=== PATIENT | female | born 1955 | race Two or more races ===

== ENCOUNTER 2024-12-01 20:41 | Inpatient (IN) | payer OTHER, MEDICAID ==
[~2024-12-01] VITALS: Ht 152.4 cm; Wt 56.8 kg
--- NOTE | 2024-12-01 21:08 | ED.PDOC ---
History of Present Illness HPI Comments 69-year-old female came to ER for high blood pressure. 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 States she takes her losartan regularly. Patient has been experiencing elevated blood pressure at least 2-3 times weekly, however for the past 5 days her blood pressure has been constantly elevated. Noted to have headaches and nape pain. 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 Family History Family History: Reviewed,noncontributory to illness Social History Smoker: Non-Smoker Alcohol: Denies ETOH Use Drugs: Denies Drug Use Lives In: Home Constitutional: denies: chills, diaphoresis, fatigue, fever, malaise, sweats, weakness, others EENTM: denies: blurred vision, double vision, ear bleeding, ear discharge, ear drainage, ear pain, ear ringing, eye pain, eye redness, hearing loss, mouth pain, mouth swelling, nasal discharge, nose bleeding, nose congestion, nose pain, photophobia, tearing, throat pain, throat swelling, voice changes, others Respiratory: denies: cough, hemoptysis, orthopnea, SOB at rest, shortness of breath, SOB with excertion, stridor, wheezing, others Cardiovascular: denies: chest pain, dizzy spells, diaphoresis, Dyspnea on exertion, edema, irregular heart beat, left arm pain, lightheadedness, palpitations, PND, syncope, others Gastrointestinal: denies: abdomen distended, abdominal pain, blood streaked bowels, constipated, diarrhea, dysphagia, difficulty swallowing, hematemesis, melena, nausea, poor appetite, poor fluid intake, rectal bleeding, rectal pain, vomiting, others Genitourinary: denies: abnormal vagina bleeding, burning, dyspareunia, dysuria, flank pain, frequency, hematuria, incontinence, pain, , vagina discharge, urgency, others Neurological: reports: headache; denies: dizziness, fainting, left sided numbness, left sided weakness, numbness, paresthesia, pre-existing deficit, rig ht sided numbness, right sided weakness, seizure, speech problems, tingling, tremors, weakness, others Musculoskeletal: denies: back pain, gout, joint pain, joint swelling, muscle pain, muscle stiffness, neck pain, others Integumetry: denies: bruises, change in color, change in hair/nails, dryness, laceration, lesions, lumps, rash, wounds, others Allergic/Immunocompromised: denies: Difficulty Healing, Frequent Infections, Hives, Itching, others Hematologic/Lymphatic: denies: anemia, blood clots, easy bleeding, easy bruising, swollen glands, others Endocrine: denies: excessive hunger, excessive sweating, excessive thirst, excessive urination, flushing, intolerance to cold, intolerance to heat, unexplained weight gain, unexplained weight loss, others Psychiatric: denies: anxiety, bipolar disorder, depression, hopeless, panic disorder, schizophrenia, sleepless, suicidal, others Physical Exam General Appearance: No Apparent Distress, Normal HEENT: Normal ENT Inspection, Pharynx Normal, TMs Normal Neck: Full Range of Motion, Non-Tender, Normal, Normal Inspection Respiratory: Chest Non-Tender, Lungs Clear, No Accessory Muscle Use, No Respiratory Distress, Normal Breath Sounds Cardiovascular: No Edema, No JVD, No Murmur, No Gallop, Normal Peripheral Pulses, Regular Rate/Rhythm, Other (Dextrocardia) Breast Exam: Deferred Gastrointestinal: No Organomegaly, Non Tender, No Pulsatile Mass, Normal Bowel Sounds, Soft Genitalia: Deferred Pelvic: Deferred Rectal: Deferred Extremities: No calf tenderness, Normal capillary refill, Normal inspection, Normal range of motion, Non-tender, No pedal edema Musculoskeletal : Apperance: Normal Neurologic: Alert, laboratory worker II-XII nml as Tested, No Motor Deficits, Normal Affect, Normal Mood, No Sensory Deficits Cerebellar Function: Normal Reflexes: Normal Skin: Dry, Normal Color, Warm Lymphatic: No Adenopathy Was a procedure done? Was a procedure done?: No Differential Dx Considerations may include: Hypertensive urgency, anemia, electrolyte imbalance, anxiety intracranial bleed, CVA, acute renal failure, congestive heart failure, medication noncompliance, X-Ray, Labs, Meds, VS Vital Signs Date Time Temp Pulse Resp B/P (MAP) Pulse Ox O2 Delivery O2 Flow Rate FiO2 8/24/25 00:00 97.8 69 19 161/61 (94) 97 97.8 12/01/24 23:29 64 157/61 12/01/24 23:00 97.8 78 19 157/73 (101) 97 97.8 12/01/24 22:29 72 190/83 12/01/24 22:28 223/99 12/01/24 22:15 78 12/01/24 22:07 81 19 97 Room Air* 0 21 12/01/24 22:07 97.8 81 19 223/99 (140) 97 97.8 12/01/24 21:12 77 12/01/24 20:43 98.1 80 16 239/102 98 98.1 Lab Test 12/01/24 21:11 Range/Units White Blood Count 9.4 4.4-10.8 10^3/uL Red Blood Count 4.99 4.0-5.20 10^6/uL Hemoglobin 16.1 12.2-16.2 g/dL Hematocrit 45.9 36.0-46.0 % Mean Corpuscular Volume 91.9 80.0-100.0 fL Mean Corpuscular Hemoglobin 32.2 H 28.0-32.0 pg Mean Corpuscular Hemoglobin Concent 35.0 32.0-36.0 g/dL Red Cell Distribution Width 13.7 11.8-14.3 % Platelet Count 326 140-450 10^3/uL Mean Platelet Volume 7.0 6.9-10.8 fL Neutrophils (%) (Auto) 43.2 37.0-80.0 % Lymphocytes (%) (Auto) 48.0 10.0-50.0 % Monocytes (%) (Auto) 5.8 0.0-12.0 % Eosinophils (%) (Auto) 2.2 0.0-7.0 % Basophils (%) (Auto) 0.8 0.0-2.0 % Neutrophils # (Auto) 4.0 1.6-8.6 10 ^3/uL Lymphocytes # (Auto) 4.5 0.4-5.4 10 ^3/uL Monocytes # (Auto) 0.5 0-1.3 10 ^3/uL Eosinophils # (Auto) 0.2 0-0.8 10 ^3/uL Basophils # (Auto) 0.1 0-0.2 10 ^3/uL Nucleated Red Blood Cells 0.1 % Sodium Level 137 136-145 mmol/L Potassium Level 4.0 3.5-5.1 mmol/L Chloride Level 100 98-107 mmol/L Carbon Dioxide Level 26 20-31 mmol/L Anion Gap 11 5-15 Blood Urea Nitrogen 7 L 9-23 mg/dL Creatinine 0.88 0.550-1.02 mg/dL Glomerular Filtration Rate Calc 72 >90 mL/min BUN/Creatinine Ratio 8.0 L 10.0-20.0 Serum Glucose 154 H 74-106 mg/dL Calcium Level 10.8 H 8.7-10.4 mg/dL Troponin I High Sensitivity 8 </=34 ng/L Current Medications Medications (Trade) Dose Ordered Sig/Ramón Route Start Time Stop Time Status Last Admin Fentanyl Citrate 12.5 mcg ONCE ONCE IV 12/01/24 21:00 12/01/24 21:01 DC 12/01/24 22:28 Labetalol HCl 250 mg/Sodium Chloride 250 ml @ 60 mls/hr Q4H10M ONCE IV 12/01/24 21:30 12/02/24 01:39 12/01/24 22:29 Time of 1ST Reevaluation: 21:03 Reevaluation 1ST: Unchanged Time of 2ND Reevaluation: 00:52 Reevaluation 2ND: Improved Patient Education/Counseling: Diagnosis, Treatment, Prognosis, Need For Follow Up Family Education/Counseling: Diagnosis, Treatment, Prognosis, Need For Follow Up Comments Patient has a history of hypertension. Her blood pressure recently has been out of control frequently and running into the high 200s. Patient is also having symptoms of headaches. Her blood pressure was controlled with labetalol drip. Her headache has improved. She has no evidence of any kind of intracranial bleed from the hypertension. The CAT scans unremarkable. However she will be admitted for further workup and evaluation and treatment of the uncontrolled hypertension with hypertensive urgency. SEPSIS Sepsis Screen Date sepsis recognized/suspect: Dec 01, 2024 Time Sepsis recognized/suspect: 2042 Recent Procedure: No On Antibiotic Therapy: No Respiratory Rate >20: No Heart Rate >90: No Temp<36 C (96.8 F) or >38.3 C: No SBP <90 or MAP <65 mmHG: No New Acute Mental Status Change: No Is the patient on CPAP, BIPAP,: No Physician Orders Chest Portable (12/01/24 20:55) Electrocardigram (12/01/24 20:55) Head Without Contrast (12/01/24 20:55) Electrocardigram (12/01/24 21:55) Sodium Chl 0.9% (Ns... W/Labetalol Injec (12/01/24 21:30) Vital Signs Date Time Temp Pulse Resp B/P (MAP) Pulse Ox O2 Delivery O2 Flow Rate FiO2 12/02/24 00:00 97.8 69 19 161/61 (94) 97 97.8 12/01/24 23:29 64 157/61 12/01/24 23:00 97.8 78 19 157/73 (101) 97 97.8 12/01/24 22:29 72 190/83 12/01/24 22:28 223/99 12/01/24 22:15 78 12/01/24 22:07 81 19 97 Room Air* 0 21 12/01/24 22:07 97.8 81 19 223/99 (140) 97 97.8 12/01/24 21:12 77 12/01/24 20:43 98.1 80 16 239/102 98 98.1 Laboratory Tests Test 12/01/24 21:11 White Blood Count 9.4 10^3/uL (4.4-10.8) Medications Medications Dose Ordered Sig/Ramón Route Start Time Stop Time Status Last Admin Dose Admin Fentanyl Citrate 12.5 mcg ONCE ONCE IV 12/01/24 21:00 12/01/24 21:01 DC 12/01/24 22:28 Labetalol HCl 250 mg/Sodium Chloride 250 ml @ 60 mls/hr Q4H10M ONCE IV 12/01/24 21:30 12/02/24 01:39 12/01/24 22:29 Departure 1 Departure Time of Disposition: 00:55 Impression: Primary Impression: Hypertensive crisis Disposition: 09 ADMITTED INPATIENT Admit to: ICU Condition: Serious Discharged With: Self, Relative Critical Care Note Critical Care Time?: Yes (35 min-critical care time only) Critical care comment: Hypertensive urgency Due to concerns for patients condition deteriorating, the care required my highest level of attention and readiness to intervene. I assessed the patient, reviewed the medical records, ordered the appropriate tests and treatments, then reassessed for results and responsiveness. I communicated with medical personnel and consultants and formulated a plan of care. Total critical care time excludes any procedures Stability Stability form required: No Heart Score Heart Score: Heart Score Response (Comments) Value History Slightly Suspicious 0 EKG Repolarization Disturb 1 Age >65 2 Risk Factors >3 or Hx ASHD 2 Troponin Normal limit 0 Total 5 I personally scribed for GROVER SUGGS MD ([email or web address]) on 12/01/24 at 21:08. Electronically submitted by Edison Wood ([facility]). GROVER SUGGS MD Dec 01, 2024 21:08
[2024-12-01 21:19] LABS: Hematocrit 45.9 % (36.0-46.0); Hemoglobin 16.1 g/dL (12.2-16.2); Mean Corpuscular Hemoglobin 32.2 pg (28.0-32.0); Mean Corpuscular Volume 91.9 fL (80.0-100.0); Nucleated Red Blood Cells % 0.1 %
[2024-12-01 21:26] LABS: Chloride 100 mmol/L (98-107); Potassium 4.0 mmol/L (3.5-5.1); Sodium 137 mmol/L (136-145)
[2024-12-01 21:27] LABS: Anion Gap 11 (5-15); Carbon Dioxide 26 mmol/L (20-31)
[2024-12-01 21:32] LABS: BUN/Creatinine Ratio 8.0 (10.0-20.0)
[2024-12-01 21:36] LABS: Blood Urea Nitrogen 7 mg/dL (9-23); Calcium 10.8 mg/dL (8.7-10.4); Glucose 154 mg/dL (74-106)
[2024-12-01 22:07] VITALS: PULSE 81; RESP 19; O2SAT 97
[2024-12-01] MEDS: fentaNYL CITRATE 100 MCG/2 ML VL IV ONE (22:28)
[2024-12-01] MEDS: LABETALOL INJECTION 250 MG in SODIUM CHL 0.9% 200 ML IV ONE (22:29)
[2024-12-01] MEDS: LABETALOL HCL 5 MG/ML ML 20ML VIAL IV ONE (22:29)
--- NOTE | 2024-12-02 00:20 | DVH ---
CHEST RADIOGRAPH Indication: htn Technique: 1 view Comparison: None FINDINGS: Patient is rotated. Lines and Tubes: External leads. Lungs: No focal consolidation. Pleura: No effusion or pneumothorax. Cardiomediastinal contours: Size and position appear altered by patient rotation, without obvious abn ormality. Other: No acute osseous abnormality. IMPRESSION: 1. No acute cardiopulmonary abnormality within the exam limitation.
--- NOTE | 2024-12-02 00:26 | DVH ---
EXAM: CT HEAD WITHOUT CONTRAST INDICATION: headache TECHNIQUE: CT of the head without intravenous contrast. Radiation Dose : 1. Head: CT Dose: CTDI volume is 54 mGy. Dose-length product is 950 mGy*cm The dose indicators for CT are the volume Computed Tomography (CT) Dose Index (CTDIvol) and the Dose Length Product (DLP), and are measured in units of mGy and mGy-cm, respectively. These indicators are not patient dose, but values generated from the CT scanner acquisition factors. The report includes radiation exposure data for exposures received during this examination. COMPARISON: None FINDINGS: Brain: No acute hemorrhage, mass effect, or cerebral edema. CSF Spaces: Size and morphology within normal limits. Bones/Soft Tissues: No acute findings. Orbits/Sinuses/Mastoids: Mild paranasal sinus disease. Otherwise unremarkable as visualized. IMPRESSION: 1. No acute intracranial abnormality. Radiation optimization: All CT scans at this facility use at least one of these dose optimization lashell hniques: automated exposure control mA and/or kV adjustment per patient size (includes targeted exam s where dose is matched to clinical indication) or iterative reconstruction.
--- NOTE | 2024-12-02 01:24 | DVHHP2 ---
History of Present Illness Reason for Visit: Hypertensive urgency History of Present Illness The patient is a 69-year-old female past medical history of CVA x3 with no residuals and hypertension who presented to [facility] ED with complaint of high blood pressure associated with headache. Patient has been experiencing elevated blood pressure at least 2-3 times weekly, however for the past 5 days her blood pressure has been constantly elevated, complaining of headaches and nape pain. Patient was seen and evaluated in the ED with elevated blood pressure at 239/109 mm Hg, heart rate 68, temperature 97.8 F, O2 saturation 97% on room air. Laboratory data shows WBC 9.4, platelets 326, sodium 137, potassium 4.0, BUN 7, creatinine 0.88, glucose 154, calcium 10.8, troponin 8. Chest x-ray show no acute cardiopulmonary abnormality. Patient was given labetalol 300 mg IV x 1, please see medication orders section in the computer. On my assessment, son at bedside, patient denies chest pain, no headache at this moment, no dizziness, no diaphoresis, no shortness of breaths, no nausea, no vomiting, no fever, no chills. Patient was admitted for further evaluation and medical management. Past Medical History CVA x3 with no residuals, HTN Past Surgical History Denies all surgeries Family History Reviewed, noncontributory to the management of this case. Past Social History The patient lives at home, denies smoking, alcohol or illicit drugs abuse. Review of Systems Constitutional: Yes: Weakness; No: Fever, Chills, Sweats, Malaise, Other Eyes: No: Pain, Vision change, Conjunctivae inflammation, Eyelid inflammation, Other, Redness ENT: No: Ear pain, Ear discharge, Nose pain, Nose discharge, Nose congestion, Mouth pain, Mouth swelling, Throat pain, Throat swelling, Other Respiratory: No: Cough, Dry, Shortness of breath, SOB with excertion, Wheezing, Hemoptysis, Pleuritic Pain, Sputum, Wheezing, Other Cardiovascular: Other (Hypertension); No: Chest Pain, Palpitations, Orthopnea, Paroxysmal Noc. Dyspnea, Edema, Lt Headedness Gastrointestinal: No: Nausea, Vomiting, Abdominal Pain, Diarrhea, Constipation, Melena, Hematochezia, Other Genitourinary: No Dysuria, No Frequency, No Incontinence, No Hematuria, No Retention, No Other Musculoskeletal: No: other, neck pain, shoulder pain, arm pain, back pain, hand pain, leg pain, foot pain Skin: No: Rash, Lesions, Jaundice, Bruising, Other Neurological: Other (Headache); No: Weakness, Numbness, Incoordination, Change in speech, Confusion, Seizures Allergies: Coded Allergies: NO KNOWN ALLERGIES (Unverified , 12/01/24) Exam Vital Signs Vital Signs Date Time Temp Pulse Resp B/P (MAP) Pulse Ox O2 Delivery O2 Flow Rate FiO2 12/02/24 00:00 97.8 69 19 161/61 (94) 97 97.8 12/01/24 22:07 Room Air* 0 21 General Appearance: Alert, Oriented X3, Cooperative, No acute distress HEENT: Atraumatic, PERRLA, EOMI, Mucous membr. moist/pink Respiratory: Clear to auscultation, Normal air movement Cardiovascular: Regular rate, Normal S1, Normal S2, No murmurs Abdominal: Normal bowel sounds, Soft, No tenderness, No hepatospenomegaly, No masses Extremities: No clubbing, No cyanosis, No edema, Normal pulses, No tenderness/swelling Skin: No rashes, No breakdown, No significant lesion Neuro: Normal speech, Normal tone, Sensation intact, Cranial nerves 3-12 NL, Reflexes 2+, Other (Generalized weakness) Psych/Mental Status: Mental status NL, Mood NL Labs/Xrays Labs Test 12/01/24 21:11 Range/Units White Blood Count 9.4 4.4-10.8 10^3/uL Red Blood Count 4.99 4.0-5.20 10^6/uL Hemoglobin 16.1 12.2-16.2 g/dL Hematocrit 45.9 36.0-46.0 % Mean Corpuscular Volume 91.9 80.0-100.0 fL Mean Corpuscular Hemoglobin 32.2 H 28.0-32.0 pg Mean Corpuscular Hemoglobin Concent 35.0 32.0-36.0 g/dL Red Cell Distribution Width 13.7 11.8-14.3 % Platelet Count 326 140-450 10^3/uL Mean Platelet Volume 7.0 6.9-10.8 fL Neutrophils (%) (Auto) 43.2 37.0-80.0 % Lymphocytes (%) (Auto) 48.0 10.0-50.0 % Monocytes (%) (Auto) 5.8 0.0-12.0 % Eosinophils (%) (Auto) 2.2 0.0-7.0 % Basophils (%) (Auto) 0.8 0.0-2.0 % Neutrophils # (Auto) 4.0 1.6-8.6 10 ^3/uL Lymphocytes # (Auto) 4.5 0.4-5.4 10 ^3/uL Monocytes # (Auto) 0.5 0-1.3 10 ^3/uL Eosinophils # (Auto) 0.2 0-0.8 10 ^3/uL Basophils # (Auto) 0.1 0-0.2 10 ^3/uL Nucleated Red Blood Cells 0.1 % Sodium Level 137 136-145 mmol/L Potassium Level 4.0 3.5-5.1 mmol/L Chloride Level 100 98-107 mmol/L Carbon Dioxide Level 26 20-31 mmol/L Anion Gap 11 5-15 Blood Urea Nitrogen 7 L 9-23 mg/dL Creatinine 0.88 0.550-1.02 mg/dL Glomerular Filtration Rate Calc 72 >90 mL/min BUN/Creatinine Ratio 8.0 L 10.0-20.0 Serum Glucose 154 H 74-106 mg/dL Calcium Level 10.8 H 8.7-10.4 mg/dL Troponin I High Sensitivity 8 </=34 ng/L PATIENT: CHELSEA MONTEJO ACCT: [id number] UNIT: [id number] : 1955 LOC: ER ROOM / BED: / AGE / SEX: 69 / F ADM STATUS: REG ER SERVICE 54 ORDERING PHYSICIAN: GROVER SUGGS MD PROCEDURE(s): HWOCT - HEAD WITHOUT CONTRAST REASON: headache ORDER NUMBER(s): [id number], ACCESSION NUMBER(s): [id number] EXAM: CT HEAD WITHOUT CONTRAST INDICATION: headache TECHNIQUE: CT of the head without intravenous contrast. Radiation Dose: 1. Head: CT Dose: CTDI volume is 54 mGy. Dose-length product is 950 mGy*cm The dose indicators for CT are the volume Computed Tomography (CT) Dose Index (CTDIvol) and the Dose Length Product (DLP), and are measured in units of mGy and mGy-cm, respectively. These indicators are not patient dose, but values generated from the CT scanner acquisition factors. The report includes radiation exposure data for exposures received during this examination. COMPARISON: None FINDINGS: Brain: No acute hemorrhage, mass effect, or cerebral edema. CSF Spaces: Size and morphology within normal limits. Bones/Soft Tissues: No acute findings. Orbits/Sinuses/Mastoids: Mild paranasal sinus disease. Otherwise unremarkable as visualized. IMPRESSION: 1. No acute intracranial abnormality. ORDERING PHYSICIAN: GROVER SUGGS MD PROCEDURE(s): CXRP - CHEST PORTABLE REASON: htn ORDER NUMBER(s): [id number], ACCESSION NUMBER(s): [id number] CHEST RADIOGRAPH Indication: htn Technique: 1 view Comparison: None FINDINGS: Patient is rotated. Lines and Tubes: External leads. Lungs: No focal consolidation. Pleura: No effusion or pneumothorax. Cardiomediastinal contours: Size and position appear altered by patient rotation, without obvious abnormality. Other: No acute osseous abnormality. IMPRESSION: 1. No acute cardiopulmonary abnormality within the exam limitation. SEPSIS Sepsis Screen Date sepsis recognized/suspect: Dec 01, 2024 Time Sepsis recognized/suspect: 2209 Recent Procedure: No On Antibiotic Therapy: No Respiratory Rate >20: No Heart Rate >90: No Temp<36 C (96.8 F) or >38.3 C: No SBP <90 or MAP <65 mmHG: No New Acute Mental Status Change: No Is the patient on CPAP, BIPAP,: No Physician Orders Chest Portable (12/01/24 20:55) Electrocardigram (12/01/24 20:55) Head Without Contrast (12/01/24 20:55) Electrocardigram (12/01/24 21:55) Sodium Chl 0.9% (Ns... W/Labetalol Injec (12/01/24 21:30) Complete Blood Count (12/02/24 04:00) Comprehensive Metabolic Panel (12/02/24 04:00) Hydralazine Injection (Apresoline Inject (12/02/24 01:30) Amlodipine Tablet (Norvasc Tablet) (12/02/24 01:30) Amlodipine Tablet (Norvasc Tablet) (12/02/24 10:00) Metoprolol Tartrate Tablet (Lopressor Ta (12/02/24 10:00) Aspirin Tablet (12/02/24 10:00) Famotidine Injection (Pepcid Injection) (12/02/24 10:00) Admit (12/02/24 01:18) Vital Signs Date Time Temp Pulse Resp B/P (MAP) Pulse Ox O2 Delivery O2 Flow Rate FiO2 12/02/24 00:00 97.8 69 19 161/61 (94) 97 97.8 12/01/24 23:29 64 157/61 12/01/24 23:00 97.8 78 19 157/73 (101) 97 97.8 12/01/24 22:29 72 190/83 12/01/24 22:28 223/99 12/01/24 22:15 78 12/01/24 22:07 81 19 97 Room Air* 0 21 12/01/24 22:07 97.8 81 19 223/99 (140) 97 97.8 12/01/24 21:12 77 12/01/24 20:43 98.1 80 16 239/102 98 98.1 Laboratory Tests Test 12/01/24 21:11 White Blood Count 9.4 10^3/uL (4.4-10.8) Medications Medications Dose Ordered Sig/Ramón Route Start Time Stop Time Status Last Admin Dose Admin Fentanyl Citrate 12.5 mcg ONCE ONCE IV 12/01/24 21:00 12/01/24 21:01 DC 12/01/24 22:28 12.5 MCG Labetalol HCl 250 mg/Sodium Chloride 250 ml @ 60 mls/hr Q4H10M ONCE IV 12/01/24 21:30 12/02/24 01:39 12/01/24 22:29 60 MLS/HR Assessment/Plan Assessment/Plan Hypertensive urgency Generalized weakness Plan 1. Admit to telemetry unit 2. Breathing treatment 3. Pain control management 4. Management of fluids and electrolytes 5. Consultation for hospitalist 6. Diagnostic tests chest x-ray 7. DVT prophylaxis-on aspirin 8. Repeat labs CBC, CMP in a.m. 9. Continue with current medical management 10. Treatment plan discussed with patient and RN. Patient verbalized understanding. Plan discussed with: Patient, Other (RN) My Orders Orders - JOEY ROA DNP Procedure Category Date Status Time Complete Blood Count LAB 12/02/24 Verified 04:00 Comprehensive LAB 12/02/24 Verified Metabolic Panel 04:00 Hydralazine Injection PHA 12/02/24 Verified (Apresoline Inject 01:30 Amlodipine Tablet PHA 12/02/24 Verified (Norvasc Tablet) 01:30 Amlodipine Tablet PHA 12/02/24 Verified (Norvasc Tablet) 10:00 Metoprolol Tartrate PHA 12/02/24 Verified Tablet (Lopressor Ta 10:00 Aspirin Tablet PHA 12/02/24 Verified 10:00 Famotidine Injection PHA 12/02/24 Verified (Pepcid Injection) 10:00 Admit ADMIT 12/02/24 Verified 01:18 Problem List: (1) Hypertensive urgency (2) Generalized weakness Date of Service: Dec 02, 2024 Billing Provider: JOEY ROA DNP Common Visit Codes: [id number] INP/OBS CARE (HIGH) JOEY ROA DNP Dec 02, 2024 01:24
[2024-12-02] MEDS ORDERED: MORPHINE SULFATE INJ 2 MG/ml SYRG IV PRN (01:30)
[2024-12-02] MEDS ORDERED: ONDANSETRON HCL 4 MG/2 ML VIAL IV PRN (01:30)
[2024-12-02] MEDS ORDERED: NITROGLYCERIN 0.4 MG SL TAB SL PRN (01:30)
[2024-12-02] MEDS ORDERED: DOCUSATE SOD 100 MG CAP PO PRN (01:30)
[2024-12-02] MEDS ORDERED: ACETAMINOPHEN 325 MG TAB PO PRN (01:30)
[2024-12-02] MEDS: SODIUM CHLORIDE 0.9% 1,000 ML IV SCH (01:51)
[2024-12-02] MEDS ORDERED: ISOS1TAB PO (02:17)
[2024-12-02] MEDS ORDERED: ATOR40TA52 PO (02:18)
[2024-12-02] MEDS ORDERED: TRAZ-227 PO (02:19)
[2024-12-02] MEDS ORDERED: GABA-339 PO (02:21)
[2024-12-02] MEDS: HYDROcodone-ACET 5/325MG TAB PO PRN (07:39)
[2024-12-02 07:44] VITALS: PULSE 52; RESP 16; O2SAT 98
[2024-12-02 08:17] LABS: Hematocrit 44.4 % (36.0-46.0); Hemoglobin 15.3 g/dL (12.2-16.2); Mean Corpuscular Hemoglobin 31.8 pg (28.0-32.0); Mean Corpuscular Volume 92.5 fL (80.0-100.0); Nucleated Red Blood Cells % 0.2 %
[2024-12-02 08:29] LABS: Alanine Aminotransferase 17 U/L (7-40); Albumin 4.5 g/dL (3.2-4.8); Alkaline Phosphatase 107 U/L (46-116); Anion Gap 9 (5-15); BUN/Creatinine Ratio 10.4 (10.0-20.0); Bilirubin, Total 1.2 mg/dL (0.2-1.0); Calcium 10.2 mg/dL (8.7-10.4); Carbon Dioxide 23 mmol/L (20-31); Potassium 4.3 mmol/L (3.5-5.1); Sodium 141 mmol/L (136-145); Total Protein 6.8 g/dL (5.7-8.2)
[2024-12-02 08:30] LABS: Blood Urea Nitrogen 8 mg/dL (9-23); Chloride 109 mmol/L (98-107); Glucose 130 mg/dL (74-106)
[2024-12-02] MEDS ORDERED: LOSA-533 PO (09:58)
[2024-12-02] MEDS ORDERED: ASPI-543 PO (09:58)
[2024-12-02] MEDS ORDERED: TIZA4CAP PO (09:58)
[2024-12-02] MEDS: METOPROLOL TARTRATE 25 MG TAB PO SCH (10:00)
[2024-12-02] MEDS: FAMOTIDINE (10MG/ML) 2ML VL IV SCH (10:06)
[2024-12-02] MEDS: hydrALAZINE HCL 20 MG/ML VL IV PRN (12:15)
[2024-12-02 14:03] LABS: Urine Protein, UAD Negative (Negative)
[2024-12-02 17:18] VITALS: BP 161/71; PULSE 63; RESP 17; TEMP 98; O2SAT 97
[2024-12-02 17:31] VITALS: BP 161/71; PULSE 67; PULSE 76; RESP 16; RESP 18; TEMP 98.3; O2SAT 96; O2SAT 99
--- NOTE | 2024-12-02 18:35 | DVHPN2 ---
Subjective Patient is here for hypertensive emergency currently off labetalol drip. He denies any chest pain but does complaining of headache. Changes from previous H/P or p: No Changes Eyes: No Pain, No Vision change, No Conjunctivae inflammation, No Eyelid inflammation, No Other, No Redness ENT: No Ear pain, No Ear discharge, No Nose pain, No Nose discharge, No Nose congestion, No Mouth pain, No Mouth swelling, No Throat pain, No Throat swelling, No Other Cardiovascular: No Chest Pain, No Palpitations, No Orthopnea, No Paroxysmal Noc. Dyspnea, No Edema, No Lt Headedness; Other (Hypertension) Respiratory: No Cough, No Dry, No Shortness of breath, No SOB with excertion, No Wheezing, No Hemoptysis, No Pleuritic Pain, No Sputum, No Other Gastrointestinal: No Nausea, No Vomiting, No Abdominal Pain, No Diarrhea, No Constipation, No Melena, No Hematochezia, No Other Genitourinary: No Dysuria, No Frequency, No Incontinence, No Hematuria, No Retention, No Other Musculoskeletal: No other, No neck pain, No shoulder pain, No arm pain, No back pain, No hand pain, No leg pain, No foot pain Skin: No Rash, No Lesions, No Jaundice, No Bruising, No Other Objective Vitals Vital Signs Date Time Temp Pulse Resp B/P (MAP) Pulse Ox O2 Delivery O2 Flow Rate FiO2 12/02/24 17:31 98.3 67 18 161/71 (101) 99 98.3 12/02/24 17:31 Room Air* 0 21 Intake/Output Intake and Output 12/02/24 07:00 Intake Total 421 ml Balance 421 ml Intake IV Total 421 ml Exam HEENT pupils reactive Neck is supple CVS S1-S2 regular rate and rhythm Respiratory bile duct clear GI positive bowel sounds Extremity 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 Medications Current Medications Medications Dose Ordered Sig/Ramón Route Start Time Stop Time Status Last Admin Dose Admin Hydralazine HCl 10 mg Q6HP PRN IV 12/02/24 01:30 12/02/24 12:15 10 MG Amlodipine Besylate 10 mg DAILY PO 12/03/24 10:00 Metoprolol Tartrate 25 mg BID PO 12/02/24 10:00 Aspirin 81 mg DAILY PO 12/02/24 10:00 12/02/24 10:05 81 MG Famotidine 20 mg DAILY IV 12/02/24 10:00 12/02/24 10:06 20 MG Sodium Chloride 1,000 ml @ 60 mls/hr [id number] IV 12/02/24 01:30 12/02/24 01:51 60 MLS/HR Acetaminophen/ Hydrocodone Bitart 1 tab Q4HP PRN PO 12/02/24 01:30 12/02/24 07:39 1 TAB Ondansetron HCl 4 mg Q4HP PRN IV 12/02/24 01:30 Docusate Sodium 100 mg BIDPRN PRN PO 12/02/24 01:30 Acetaminophen 650 mg Q6HP PRN PO 12/02/24 01:30 Nitroglycerin 0.4 mg Q5MINP PRN SL 12/02/24 01:30 Morphine Sulfate 2 mg Q30M PRN IV 12/02/24 01:30 Trazodone HCl 50 mg HS PO 12/02/24 22:00 Atorvastatin Calcium 40 mg HS PO 12/02/24 22:00 Laboratory Results Laboratory Tests 12/02/24 07:42 Chemistry Test 12/01/24 21:11 12/02/24 07:42 Calcium Level 10.8 mg/dL (8.7-10.4) H 10.2 mg/dL (8.7-10.4) Albumin 4.5 g/dL (3.2-4.8) Total Protein 6.8 g/dL (5.7-8.2) LFT Test 12/02/24 07:42 Alanine Aminotransferase (ALT) 17 U/L (7-40) Alkaline Phosphatase 107 U/L (46-116) Aspartate Amino Transferase (AST) 18 U/L (13-40) Total Bilirubin 1.2 mg/dL (0.2-1.0) H Urinalysis Test 12/02/24 00:00 Urine Color Colorless (Yellow) Urine Clarity Clear (Clear) Urine pH 7.0 (5.0-9.0) Urine Specific [place] 1.005 (1.001-1.035) Urine Protein Negative (Negative) Urine Ketones Negative (Negative) Urine Blood Negative /uL (Negative) Urine Nitrite Negative (Negative) Urine Bilirubin Negative (Negative) Urine Urobilinogen Normal mg/dL (Negative) Urine Leukocyte Esterase Negative /uL (Negative) Urine RBC <1 /hpf (0 - 4) Urine Microscopic WBC 1 /HPF (0-5) Urine Squamous Epithelial Cells Few /hpf (<5) Urine Bacteria Few /hpf (None Seen) H Urine Glucose Normal mg/dL (Normal) Assessment/Plan Assessment/Plan 69-year-old female with a known history of hypertension, dyslipidemia, chronic insomnia initially presented the hospital with a headache found to have 1. Hypertensive emergency 2. Acute cephalgia of the dog any focal deficit 3. Dyslipidemia next 4. Chronic insomnia -start beta-moy, amlodipine, discharge plan was blood pressure is better controlled. Plan discussed with: Patient Date of Service: Dec 02, 2024 Billing Provider: CELSO FORD MD Common Visit Codes: [id number] INP/OBS CARE(MOD) CELSO FORD MD Dec 02, 2024 18:35
--- NOTE | 2024-12-02 19:17 | ECG ---
[facility] Test Date: 2024-12-01 Test Time: 22:15:04 Pat Name: CHELSEA MONTEJO Department: [facility] ED Patient ID: [id number] Room: 0202T A Gender: F Manager Process: HUONG : 1955 Requested By: GROVER SUGGS Order Number: [id number] Reading MD: Rudi Gaspar Measurements Intervals [place] Rate: 78 P: 55 AL: 153 QRS: 45 QRSD: 89 T: 110 QT: 373 QTc: 425 Interpretive Statements Sinus rhythm Consider right ventricular hypertrophy Nonspecific T abnormalities, lateral leads Electronically Signed On 12-05-2024 18:35:54 PDT by Rudi Gaspar Please click the below link to view image of tracing.
[2024-12-02 20:00] VITALS: PULSE 68; PULSE 69; RESP 18; O2SAT 97
[2024-12-02 21:00] VITALS: BP 140/62; PULSE 68; RESP 18; TEMP 98.1; O2SAT 97
[2024-12-02] MEDS: ATORVASTATIN 20 MG TAB PO SCH (22:45)
[2024-12-03] VITALS (8 sets, daily range): BP systolic 95–154; BP diastolic 46–71; PULSE 50–62; RESP 15–18; TEMP 97.9–98.4; O2SAT 94–97
[2024-12-03 07:20] LABS: Hematocrit 45.7 % (36.0-46.0); Hemoglobin 15.6 g/dL (12.2-16.2); Mean Corpuscular Hemoglobin 32.1 pg (28.0-32.0); Mean Corpuscular Volume 93.9 fL (80.0-100.0); Nucleated Red Blood Cells % 0.0 %
--- NOTE | 2024-12-03 07:40 | ECG ---
[facility] Test Date: 2024-12-01 Test Time: 21:12:30 Pat Name: CHELSEA MONTEJO Department: ED Room: 0202T A Gender: F Kier Hand: NELIA : 1955 Requested By: GROVER SUGGS Order Number: [id number] Reading MD: Rudi Gaspar Measurements Intervals [place] Rate: 77 P: 109 VA: 159 QRS: 158 QRSD: 97 T: 81 QT: 375 QTc: 425 Interpretive Statements Sinus rhythm Consider dextrocardia Electronically Signed On 12-05-2024 18:35:42 PDT by Rudi Gaspar Please click the below link to view image of tracing.
[2024-12-03 07:42] LABS: Alanine Aminotransferase 15 U/L (7-40); Albumin 4.4 g/dL (3.2-4.8); Alkaline Phosphatase 100 U/L (46-116); Anion Gap 9 (5-15); BUN/Creatinine Ratio 14.5 (10.0-20.0); Blood Urea Nitrogen 12 mg/dL (9-23); Calcium 10.2 mg/dL (8.7-10.4); Carbon Dioxide 25 mmol/L (20-31); Chloride 107 mmol/L (98-107); Glucose 121 mg/dL (74-106); Potassium 4.5 mmol/L (3.5-5.1); Sodium 141 mmol/L (136-145); Total Protein 6.6 g/dL (5.7-8.2)
[2024-12-03 07:44] LABS: Bilirubin, Total 1.8 mg/dL (0.2-1.0)
--- NOTE | 2024-12-03 11:01 | DVHPN2 ---
Subjective Patient is seen at bedside, doing well Reviewed: Care Plan Changes from previous H/P or p: No Changes General: Per HPI Eyes: No Pain, No Vision change, No Conjunctivae inflammation, No Eyelid inflammation, No Other, No Redness ENT: No Ear pain, No Ear discharge, No Nose pain, No Nose discharge, No Nose congestion, No Mouth pain, No Mouth swelling, No Throat pain, No Throat swelling, No Other Cardiovascular: No Chest Pain, No Palpitations, No Orthopnea, No Paroxysmal Noc. Dyspnea, No Edema, No Lt Headedness; Other (Hypertension) Respiratory: No Cough, No Dry, No Shortness of breath, No SOB with excertion, No Wheezing, No Hemoptysis, No Pleuritic Pain, No Sputum, No Other Gastrointestinal: No Nausea, No Vomiting, No Abdominal Pain, No Diarrhea, No Constipation, No Melena, No Hematochezia, No Other Genitourinary: No Dysuria, No Frequency, No Incontinence, No Hematuria, No Retention, No Other Musculoskeletal: No other, No neck pain, No shoulder pain, No arm pain, No back pain, No hand pain, No leg pain, No foot pain Skin: No Rash, No Lesions, No Jaundice, No Bruising, No Other Objective Vitals Vital Signs Date Time Temp Pulse Resp B/P (MAP) Pulse Ox O2 Delivery O2 Flow Rate FiO2 12/03/24 10:01 62 152/69 12/03/24 08:57 98.1 15 97 98.1 12/03/24 08:03 Room Air* 0 21 Intake/Output Intake and Output 12/03/24 07:00 Intake Total 990 ml Balance 990 ml Intake Oral 450 ml IV Total 540 ml # Voids 1 Exam GEN: Healthy appearing, well-developed, NAD. HEENT: NC/AT; MMM. CV: RRR, no m/r/g. LUNGS: CTAB, no w/r/c. ABD: Soft, NT/ND, NBS, no masses or organomegaly. EXT: skin Warm, well perfused. no rashes. No clubbing, cyanosis, or edema. NEURO: Ambulating with no limitations. No focal deficits. Medications Current Medications Medications Dose Ordered Sig/Ramón Route Start Time Stop Time Status Last Admin Dose Admin Hydralazine HCl 10 mg Q6HP PRN IV 12/02/24 01:30 12/02/24 19:03 10 MG Amlodipine Besylate 10 mg DAILY PO 12/03/24 10:00 12/03/24 10:00 10 MG Metoprolol Tartrate 25 mg BID PO 12/02/24 10:00 12/03/24 10:01 25 MG Aspirin 81 mg DAILY PO 12/02/24 10:00 12/03/24 10:01 81 MG Famotidine 20 mg DAILY IV 12/02/24 10:00 12/03/24 10:03 20 MG Acetaminophen/ Hydrocodone Bitart 1 tab Q4HP PRN PO 12/02/24 01:30 12/03/24 10:01 1 TAB Ondansetron HCl 4 mg Q4HP PRN IV 12/02/24 01:30 Docusate Sodium 100 mg BIDPRN PRN PO 12/02/24 01:30 Acetaminophen 650 mg Q6HP PRN PO 12/02/24 01:30 Nitroglycerin 0.4 mg Q5MINP PRN SL 12/02/24 01:30 Morphine Sulfate 2 mg Q30M PRN IV 12/02/24 01:30 Trazodone HCl 50 mg HS PO 12/02/24 22:00 12/02/24 22:44 50 MG Atorvastatin Calcium 40 mg HS PO 12/02/24 22:00 12/02/24 22:45 40 MG Laboratory Results Laboratory Tests 12/03/24 04:58 Chemistry Test 12/03/24 04:58 Albumin 4.4 g/dL (3.2-4.8) Calcium Level 10.2 mg/dL (8.7-10.4) Total Protein 6.6 g/dL (5.7-8.2) LFT Test 12/03/24 04:58 Alanine Aminotransferase (ALT) 15 U/L (7-40) Alkaline Phosphatase 100 U/L (46-116) Aspartate Amino Transferase (AST) 15 U/L (13-40) Total Bilirubin 1.8 mg/dL (0.2-1.0) H Urinalysis Test 12/02/24 00:00 Urine Color Colorless (Yellow) Urine Clarity Clear (Clear) Urine pH 7.0 (5.0-9.0) Urine Specific [place] 1.005 (1.001-1.035) Urine Protein Negative (Negative) Urine Ketones Negative (Negative) Urine Blood Negative /uL (Negative) Urine Nitrite Negative (Negative) Urine Bilirubin Negative (Negative) Urine Urobilinogen Normal mg/dL (Negative) Urine Leukocyte Esterase Negative /uL (Negative) Urine RBC <1 /hpf (0 - 4) Urine Microscopic WBC 1 /HPF (0-5) Urine Squamous Epithelial Cells Few /hpf (<5) Urine Bacteria Few /hpf (None Seen) H Urine Glucose Normal mg/dL (Normal) Labs and/or images reviewed: Labs reviewed by me, Image(s) reviewed by me Assessment/Plan Assessment/Plan 69-year-old female with a known history of hypertension, dyslipidemia, chronic insomnia initially presented the hospital with a headache 12/03: Blood pressure appears to be better controlled 150s can be optimize outpatient. For some reason T bili is increasing. Patient is asymptomatic, had low blood pressure last night after receiving metoprolol, we will convert metoprolol to succinate and we will only give isosorbide dinitrate daytime only. Continue amlodipine 10. If blood pressure remains stable likely discharge tomorrow. Patient is asymptomatic, exam benign euvolemic appearing. 1. Hypertensive emergency 2. Acute encephalopathy 3. Dyslipidemia next 4. Chronic insomnia -start beta-moy, amlodipine Tele Full code Plan discussed with: Patient Date of Service: Dec 03, 2024 Billing Provider: YULISA KIM MD Common Visit Codes: [id number] INP/OBS CARE(HIGH) YULISA KIM MD Dec 03, 2024 11:01
[2024-12-03] MEDS: ISOSORBIDE DINITRATE 10 MG TAB PO ONE (13:15)
[2024-12-04 01:00] VITALS: BP 128/56; PULSE 51; RESP 18; TEMP 98.2; O2SAT 96
[2024-12-04 05:00] VITALS: BP 125/64; PULSE 54; RESP 18; TEMP 98.2; O2SAT 96
[2024-12-04 05:48] LABS: Anion Gap 7 (5-15); Carbon Dioxide 28 mmol/L (20-31); Chloride 106 mmol/L (98-107); Potassium 4.9 mmol/L (3.5-5.1); Sodium 141 mmol/L (136-145)
[2024-12-04 05:49] LABS: Calcium 10.1 mg/dL (8.7-10.4)
[2024-12-04 05:54] LABS: BUN/Creatinine Ratio 15.1 (10.0-20.0); Blood Urea Nitrogen 13 mg/dL (9-23)
[2024-12-04 06:00] LABS: Glucose 131 mg/dL (74-106)
[2024-12-04 08:00] VITALS: PULSE 63
[2024-12-04] MEDS: ISOSORBIDE DINITRATE 10 MG TAB PO SCH (08:56)
[2024-12-04 09:00] VITALS: BP 135/63; PULSE 56; RESP 16; TEMP 98; O2SAT 96
--- NOTE | 2024-12-04 09:45 | DVHDS2 ---
Discharge Summary Date of Admission Dec 02, 2024 at 01:18 Labs/Diagnostic Data: Laboratory Results Test 12/04/24 09:10 12/04/24 04:45 12/03/24 04:58 12/02/24 00:00 POC Glucose 146 mg/dl (70-106) Sodium Level 141 mmol/L (136-145) Potassium Level 4.9 mmol/L (3.5-5.1) Chloride Level 106 mmol/L (98-107) Carbon Dioxide Level 28 mmol/L (20-31) Anion Gap 7 (5-15) Blood Urea Nitrogen 13 mg/dL (9-23) Creatinine 0.86 mg/dL (0.550-1.02) Glomerular Filtration Rate Calc 74 mL/min (>90) BUN/Creatinine Ratio 15.1 (10.0-20.0) Serum Glucose 131 mg/dL (74-106) Calcium Level 10.1 mg/dL (8.7-10.4) White Blood Count 9.4 10^3/uL (4.4-10.8) Red Blood Count 4.87 10^6/uL (4.0-5.20) Hemoglobin 15.6 g/dL (12.2-16.2) Hematocrit 45.7 % (36.0-46.0) Mean Corpuscular Volume 93.9 fL (80.0-100.0) Mean Corpuscular Hemoglobin 32.1 pg (28.0-32.0) Mean Corpuscular Hemoglobin Concent 34.2 g/dL (32.0-36.0) Red Cell Distribution Width 14.0 % (11.8-14.3) Platelet Count 319 10^3/uL (140-450) Mean Platelet Volume 7.6 fL (6.9-10.8) Neutrophils (%) (Auto) 62.9 % (37.0-80.0) Lymphocytes (%) (Auto) 31.2 % (10.0-50.0) Monocytes (%) (Auto) 4.3 % (0.0-12.0) Eosinophils (%) (Auto) 1.2 % (0.0-7.0) Basophils (%) (Auto) 0.4 % (0.0-2.0) Neutrophils # (Auto) 5.9 10 ^3/uL (1.6-8.6) Lymphocytes # (Auto) 2.9 10 ^3/uL (0.4-5.4) Monocytes # (Auto) 0.4 10 ^3/uL (0-1.3) Eosinophils # (Auto) 0.1 10 ^3/uL (0-0.8) Basophils # (Auto) 0 10 ^3/uL (0-0.2) Nucleated Red Blood Cells 0.0 % Urine Color Colorless (Yellow) Urine Clarity Clear (Clear) Urine pH 7.0 (5.0-9.0) Urine Specific [place] 1.005 (1.001-1.035) Urine Protein Negative (Negative) Urine Ketones Negative (Negative) Urine Blood Negative /uL (Negative) Urine Nitrite Negative (Negative) Urine Bilirubin Negative (Negative) Urine Urobilinogen Normal mg/dL (Negative) Urine Leukocyte Esterase Negative /uL (Negative) Urine RBC <1 /hpf (0 - 4) Urine Microscopic WBC 1 /HPF (0-5) Urine Squamous Epithelial Cells Few /hpf (<5) Urine Bacteria Few /hpf (None Seen) Urine Glucose Normal mg/dL (Normal) Test 12/01/24 21:11 Troponin I High Sensitivity 8 ng/L (</=34) Other Laboratory Tests 12/04/24 04:45 12/03/24 04:58 Brief Hx & Hospital Course: 69-year-old female with a known history of hypertension, dyslipidemia, chronic insomnia initially presented the hospital with a headache 12/03: Blood pressure appears to be better controlled 150s can be optimize outpatient. For some reason T bili is increasing. Patient is asymptomatic, had low blood pressure last night after receiving metoprolol, we will convert metoprolol to succinate and we will only give isosorbide dinitrate daytime only. Continue amlodipine 10. If blood pressure remains stable likely discharge tomorrow. Patient is asymptomatic, exam benign euvolemic appearing. 12/04: Patient blood pressure stable, orthostatics negative, ambulating although dizzy mildly. Yamilex maneuver positive on the right. Patient can go home with some Antivert prn, Yamilex maneuver for the right once daily for 7 days. Okay to use Tylenol and ibuprofen for tension headaches. Patient also can use compression stockings during ambulation. Follow up with PCP to review discharge. Diagnosis: Hypertensive emergency hypotension, iatrogenic possible, resolved Acute toxic metabolic encephalopathy resolved Right-sided BPPV possible headache resolved Dyslipidemia next Chronic insomnia Discharge plan: Antivert prn, Yamilex maneuver for the right once daily for 7 days. Okay to use Tylenol and ibuprofen for tension headaches. For blood pressure medication continue metoprolol tartrate 25 mg twice daily, amlodipine 5 mg once daily, isosorbide dinitrate 30 mg once daily mornings. Patient also can use compression stockings during ambulation. Follow up with PCP to review discharge. Condition at Discharge: Fair Discharge Disposition: Home Discharge Instruct/Medications Scheduled Amlodipine Besylate (Amlodipine Besylate), 0.5 TAB PO DAILY Aspirin (Aspir-Low), 81 MG PO DAILY, (Reported) Atorvastatin Calcium (Atorvastatin Calcium), 1 TAB PO DAILY, (Reported) Gabapentin (Gabapentin), 600 MG PO BID, (Reported) Isosorbide Dinitrate (Isordil Titradose), 30 MG PO BID, (Reported) Isosorbide Dinitrate (Isosorbide Dinitrate), 30 MG PO DAILY Losartan Potassium (Losartan Potassium), 25 MG PO DAILY, (Reported) Metoprolol Tartrate (Lopressor), 25 MG PO Q12HR Scheduled PRN Meclizine HCl (Antivert), 25 MG PO TIDP PRN Trazodone Hcl (Trazodone Hcl), 50 MG PO DAILY PRN for FOR INSOMNIA, (Reported) Miscellaneous Medications Tizanidine Hydrochloride (Zanaflex), 4 MG PO, (Reported) Discharge Statement: "Patient was advised to return to the ER or call 911 if any headaches, dizziness, shortness of breath, chest pain, abdominal pain, bleeding, fevers, or worsening of medical condition. Patient was counseled about treatment plan, medications, possible side effects, patientverbalized understanding. All questions were answered to the best of my ability. This discharge took greater then 30 minutes in planning, reviewing documentation, counseling the patient, and discussing with other team members." ASSESSMENT ASSESSMENT Assessment Date of Service: Dec 04, 2024 Billing Provider: YULISA KIM MD Common Visit Codes: [id number] DISCH DAY >30min YULISA KIM MD Dec 04, 2024 09:45
[2024-12-04 10:02] LABS: Alanine Aminotransferase 15.0 U/L (7-40); Albumin 4.4 g/dL (3.2-4.8); Alkaline Phosphatase 102.0 U/L (46-116); Total Protein 6.5 g/dL (5.7-8.2)
[2024-12-04 10:19] LABS: Bilirubin, Direct 0.6 mg/dL (<0.3); Bilirubin, Total 2.2 mg/dL (0.2-1.0)
[2024-12-04] MEDS: IBUPROFEN 600 MG TAB PO ONE (11:03)
[2024-12-04 13:00] VITALS: BP 117/64; PULSE 69; RESP 16; TEMP 98; O2SAT 98
[2024-12-04] MEDS: PROCHLORPERAZINE EDISYLATE 5 MG/ML 2ML VIAL IV ONE (13:39)
[2024-12-04] MEDS ORDERED: AMLO1TAB23 PO (15:14)
[2024-12-04] MEDS ORDERED: ISOS1TAB37 PO (15:14)
[2024-12-04] MEDS ORDERED: MET25T PO (15:14)
[2024-12-04] MEDS ORDERED: MECL25CH85 PO (15:14)
[2024-12-04 15:46] VITALS: BP 117/63; PULSE 69; RESP 16; TEMP 98; O2SAT 98
== END 2024-12-04 16:13 | disposition home or self-care (01) | DRG 304 ==
LOC: EEVIPCON 20:41 → ER 20:41 → OVERFLOW 12-02 01:18 → TELE-CENTR 12-02 16:57
PROVIDERS: ADMIT Student in an Organized Health Care Education/Training Program; ATTEND Student in an Organized Health Care Education/Training Program
DX: I16.1 Hypertensive emergency (principal); G92.8 Other toxic encephalopathy; G44.209 Tension-type headache, unspecified, not intractable; E78.5 Hyperlipidemia, unspecified; F51.04 Psychophysiologic insomnia; I95.9 Hypotension, unspecified; H81.11 Benign paroxysmal vertigo, right ear; Z86.73 Personal history of transient ischemic attack (TIA), and cerebral infarction without residual deficits; Z79.899 Other long term (current) drug therapy
CPT/HCPCS: 36415; 70450; 71045; 80048; 80053; 80076; 81001; 82962; 84484; 85025; 93005; 96365; 96375; 99291; G0378; J3490